=== PATIENT | female | born 1995 | race Caucasian/White ===

== ENCOUNTER 2017-09-26 18:01 | Observation (INO) ==
[2017-09-26 18:50] LABS: Bilirubin,Urine Negative (Negative); Blood,Urine Small (Negative); Clarity,Urine Clear (Clear); Color,Urine Yellow (Yellow); Glucose,Urine (UA) Normal (Normal); Ketones,Urine Negative (Negative); Leukocyte Esterase,Urine Negative (Negative); Nitrite,Urine Negative (Negative); Protein,Urine Negative (Neg-Trace); Specific Gravity,Urine 1.022 (1.010-1.025); Urobilinogen,Urine Normal (Normal)
[2017-09-26 18:53] LABS: Hyaline Casts,Urine None Seen per lpf (None-Few); RBC,Urine 0-3 per hpf (0-3); Squamous Epithelial Cell,Urine Many per lpf (None-Few)
--- NOTE | 2017-09-26 19:08 | OB/GYN Progress Note ---
Date of Encounter: 09/26/17 Time of Encounter: 07:00 - Assessment and Plan (1) 25 weeks gestation of Current Visit: Yes Status: Acute (2) Pain of round ligament affecting , antepartum Current Visit: Yes Status: Acute Plan: - FHT reassuring, accelerations. - education about round ligament pain and exercises to try - Pt safe for discharge home, with labor precautions and abdominal pain precautions, when to return to triage or call provider. Pt verbalizes understanding. (3) NST (non-stress test) reactive Current Visit: Yes Status: Acute FHR baseline = 135, accelerations. Subjective - Subjective Principal diagnosis: right suprapubic pain Interval history: Rosalba is a 21 y/o female at 25+6 weeks presented to L&D for R sided abdominal pain and vaginal pressure. Patient complaining of pain for the last 2 months just medial to her ASIS and vaginal pressure. Patient states that it has not worsened tonight. She has tried Tylenol which has not helped. Worsened by waking a lot and in the evening. Patient's complicated by hx of delivery at 33 weeks. Patient is is currently on Progestin for prophylaxis for labor. Patient denies fevers, chills, STYLES, dysuria, hematuria, vaginal bleeding, contractions, loss of fluid. Reports active movement. Patient previously followed with Dr. Mason and currently with midwifes. Antepartum ROS: other (right suprapubic pain) Objective - Vital Signs Vital Signs: Intake and Output 09/26/17 09/26/17 09/26/17 07:59 15:59 23:59 Other: Weight 98.3 kg Patient Weight 09/26/17 23:59 Weight 98.3 kg - Exam FHR: category 1 Auscultation: bilateral: normal Abdomen: Present: normal appearance, soft, tenderness (medial to ASIS with deep palpation ) Uterus: Present: normal Cervical dilation: closed Cervix effacement: thick station: high
[2017-09-26 19:09] LABS: Bacteria,Urine Few per hpf (None-Few)
[2017-09-26 19:10] LABS: Amphetamine Screen,Urine Negative ng/mL (Cutoff=1000); Barbiturate Screen,Urine Negative ng/mL (Cutoff=200); Benzodiazepines Screen,Urine Negative ng/mL (Cutoff=200); Cannabinoid Screen,Urine Negative ng/mL (Cutoff = 50); Cocaine Screen,Urine Negative ng/mL (Cutoff= 300); Opiate Screen,Urine Negative ng/mL (Cutoff=300); Phencyclidine Screen,Urine Negative ng/mL (Cutoff=25)
== END 2017-09-26 19:35 | disposition home or self-care (01) ==
LOC: 1NENULAB
PROVIDERS: ADMIT Obstetrics & Gynecology; ATTEND Obstetrics & Gynecology

== ENCOUNTER 2017-11-08 23:53 | Observation (INO) ==
--- NOTE | 2017-11-09 00:31 | OB/GYN Progress Note ---
Date of Encounter: 11/09/17 Time of Encounter: 00:28 - Assessment and Plan (1) 32 weeks gestation of Current Visit: Yes Status: Acute (2) contractions Current Visit: Yes Status: Acute Patient having occasional contractions on monitor. Betamethasone ordered for risk of delivery. No change on serial cervical exams. Patient discharged home with labor and when to return to triage precautions. Patient told to return early Saturday a.m. for second betamethasone injection. Patient verbalizes understanding (3) NST (non-stress test) reactive Current Visit: No Status: Acute Baseline 135 Subjective - Subjective Interval history: 32+1 weeks gestation presents to triage with complaints of contractions since 5:30 this evening. She reports good movement, denies vaginal bleeding or leaking of fluid, states she has had a slightly thick increased discharge over the last couple days. Patient with a history of delivery at 33-34 weeks with last , has been receiving weekly Leone injections, but has not received betamethasone. Antepartum ROS: movement normal, contractions, no loss of fluid, no vaginal bleeding Objective - Exam FHR: auscultation normal Abdomen: Present: soft, gravid Cervical dilation: /-3
[2017-11-09] MEDS ORDERED: Betamethasone Acet/SodPhos 6 MG/ML MDV IM SCH (01:45)
[2017-11-09 01:49] LABS: Bilirubin,Urine Negative (Negative); Blood,Urine Large (Negative); Clarity,Urine Cloudy (Clear); Color,Urine Yellow (Yellow); Glucose,Urine (UA) Normal (Normal); Ketones,Urine Negative (Negative); Leukocyte Esterase,Urine Negative (Negative); Nitrite,Urine Negative (Negative); PH,Urine 6.5 pH Units (5.0-8.0); Protein,Urine Negative (Neg-Trace); Specific Gravity,Urine 1.023 (1.010-1.025); Urobilinogen,Urine Normal (Normal)
[2017-11-09 01:51] LABS: Bacteria,Urine Few per hpf (None-Few); Hyaline Casts,Urine None Seen per lpf (None-Few); RBC,Urine TNTC per hpf (0-3); Squamous Epithelial Cell,Urine Many per lpf (None-Few)
[2017-11-09 02:12] LABS: Amphetamine Screen,Urine Negative ng/mL (Cutoff=1000); Barbiturate Screen,Urine Negative ng/mL (Cutoff=200); Benzodiazepines Screen,Urine Negative ng/mL (Cutoff=200); Cannabinoid Screen,Urine Negative ng/mL (Cutoff = 50); Cocaine Screen,Urine Negative ng/mL (Cutoff= 300); Opiate Screen,Urine Negative ng/mL (Cutoff=300); Phencyclidine Screen,Urine Negative ng/mL (Cutoff=25)
== END 2017-11-09 02:49 | disposition home or self-care (01) ==
LOC: 1NENULAB
PROVIDERS: ADMIT Obstetrics & Gynecology; ATTEND Obstetrics & Gynecology